=== PATIENT | male | born 1995 | race Caucasian/White ===

== ENCOUNTER 2025-04-15 12:46 | Emergency (ER) | payer SELFPAY ==
[2025-04-15 12:55] VITALS: BP 147/95; PULSE 74; RESP 14; TEMP 36.9; O2SAT 99; BMI 43.9
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
[2025-04-15 13:01] VITALS: BP 147/95; PULSE 74; RESP 14; TEMP 36.9; O2SAT 99
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
[2025-04-15] MEDS: TET/DIPHTH/PERT-ADULT 0.5ML SYRINGE 0.5 ML IM (13:37)
[2025-04-15 14:00] VITALS: BP 131/79; PULSE 67; O2SAT 97
--- NOTE | 2025-04-15 14:22 | PC.NURSE ---
pts R index/middle digits placed in traction per , she visualized the set up and states that it is acceptable set up. pt tolerated well. no new complaints. no needs voiced. call [facility] in reach.
--- NOTE | 2025-04-15 14:58 | XR_ITS ---
PROCEDURE INFORMATION: Exam: XR Right Finger(s) Exam date and time: 04/15/2025 3:00 PM Age: 29 years old Clinical indication: Other: XR long finger TECHNIQUE: Imaging protocol: Radiologic exam of the right fingers. Views: Minimum 2 views. COMPARISON: CR XR HAND RT MIN 3V 04/15/2025 1:04 PM FINDINGS: Bones/joints: Lucencies in the proximal phalanx of the proximal half of the long finger consistent with nondisplaced fracture. Soft tissues: Soft tissue swelling of the finger IMPRESSION: Lucencies in the proximal phalanx of the proximal half of the long finger consistent with nondisplaced fracture.
[2025-04-15] MEDS: MORPHINE 4MG/ML SYRINGE 4 MG IV (15:45)
[2025-04-15 16:34] VITALS: BP 131/79; PULSE 67; RESP 14; TEMP 36.9; O2SAT 97
== END 2025-04-15 16:34 | disposition home or self-care (01) ==
PROVIDERS: Emergency Provider Student in an Organized Health Care Education/Training Program
DX: S62.619A Displaced fracture of proximal phalanx of unspecified finger, initial encounter for closed fracture (principal); S61.411A Laceration without foreign body of right hand, initial encounter
CPT/HCPCS: 12002; 73090; 73110; 73130; 73140; 90471; 90715; 96374; 96375; 99211; 99284; J0690; J2270